=== PATIENT | male | born 1950 | race Caucasian/White ===

== ENCOUNTER → 2019-05-09 10:36 | Outpatient (CLI) | payer MEDICARE, OTHER ==
[2013-02-14 11:46] VITALS: BMI 27.8
[~2019-05-09 10:36] MED LIST: BETAPACE 80 MG80 MG PO; ELIQUIS PO; FISH OIL 1,2001 CA1 PO; LISINOPRIL10 MG PO; MULTIPLE VITAMI1 TA1; PRAVACHOL40 MG PO; RED YEAST RICE600 MG PO; TENORMIN100 MG PO; VITAMIN D250000 UNIT PO
== END | disposition home or self-care (01) ==
LOC: D.HCCARDIO 10:36
PROVIDERS: ATTEND Internal Medicine Cardiovascular Disease
DX: I34.0 Nonrheumatic mitral (valve) insufficiency (principal)

== ENCOUNTER → 2020-05-27 12:42 | Outpatient (CLI) | payer MEDICARE, OTHER ==
[2013-02-14 11:46] VITALS: BMI 27.8
== END | disposition home or self-care (01) ==
LOC: D.HCCECHO 12:42
PROVIDERS: ATTEND Internal Medicine Cardiovascular Disease
DX: I48.0 Paroxysmal atrial fibrillation (principal)